=== PATIENT | female | born 1995 | race Caucasian/White ===

== ENCOUNTER 2016-04-05 15:30 | Inpatient (IN) | payer OTHER ==
[2016-04-05] MEDS ORDERED: LIDOCAINE HCL 50 ML VIAL PERI PRN (15:32)
[2016-04-05] MEDS: DEXTROSE 5%-LACTATED RINGERS 1,000 ML IV PRN ×2 (15:32→20:38)
[2016-04-05] MEDS ORDERED: ONDANSETRON HCL/PF 2 MG/ML VIAL IV PRN (15:32)
[2016-04-05] MEDS ORDERED: OXYTOCIN/DEXTROSE 5%-WATER 30 UNITS/500 ML BAG IV ONE (16:34)
[2016-04-05] MEDS: RINGERS SOLUTION,LACTATED 1,000 ML IV ONE (16:38)
[2016-04-05] MEDS ORDERED: BUPIVACAINE HCL/PF 30 ML VIAL EP ONE (16:56)
[2016-04-05] MEDS ORDERED: NALOXONE HCL 1 MG/1 ML SYRG IV PRN (16:56)
--- NOTE | 2016-04-05 17:51 | OR ---
Anesthesia Procedure Note - Anesthesia Procedure Note Date of Service: 04/05/16 Narrative: Vital Signs - Last Taken Temp 36.7 C 04/05/16 17:27 Pulse 85 04/05/16 17:27 Resp 18 04/05/16 17:27 BP 142/91 04/05/16 17:27 Pulse Ox 98 04/05/16 17:27 04/05/16 17:51 ANESTHESIA PROCEDURE NOTE Date of Procedure: 04/05/2015. Time of procedure: 1730. Performed by: Shahid Ann CRNA Paper Inspector: None. Preprocedure diagnosis: Active labor. Post procedure diagnosis: Same. Procedure: Insertion of labor epidural. Indications: The patient is a 20 -year-old female in active labor requesting labor epidural for pain management. Findings: See below. Details of the procedure: The patient was placed in a sitting position. DuraPrep as well as Betadine swabs 3 was applied to the patient's back. Patient was then draped in a sterile fashion. Lidocaine 1% was infiltrated to the skin and subcutaneous tissues at the level of the L3 4 interspace. The epidural space was identified using a 18-gauge Tuohy needle with loss-of- resistance technique. Epidural catheter was inserted to a depth of 11 centimeters at skin. Negative test dose was elicited using 3 mL of 1.5% preservative-free lidocaine plus epinephrine 1 200,000. The epidural catheter was then taped and secured in place. A loading dose of 8 mL of 0.25% preservative-free bupivacaine was administered to the epidural catheter after negative aspiration for blood and CSF. EBL: Minimal. Fluids: N/A. Specimen: N/A. Post procedure condition: The patient tolerated the procedure well. No complications were noted. Thank you for this consultation. Shahid Ann CRNA
[2016-04-05] MEDS: BUPIVACAINE HCL/0.9 % NACL/PF 250 ML EP PRN (18:03)
--- NOTE | 2016-04-05 19:41 | PN ---
Progess Note - Interim Narrative: 04/05/16 19:35 Patient comfortable with epidural Vital signs stable. Pitocin at 3 mu/min. FHT:150 baseline, reassuring Contractions q 2-3 min Cervix: 5/75/-2, AROM-clear Impression: Intrauterine at 40 1/7 weeks in labor Plan: Continue present plan
[2016-04-06] MEDS ORDERED: OXYTOCIN/DEXTROSE 5%-WATER 30 UNITS/500 ML BAG IV ONE ×2 (00:01→08:19)
[2016-04-06] MEDS: DEXTROSE 5%-LACTATED RINGERS 1,000 ML IV PRN ×2 (00:34→04:29)
[2016-04-06] MEDS: RINGERS SOLUTION,LACTATED 1,000 ML IV ONE (00:35)
[2016-04-06] MEDS: BUPIVACAINE HCL/0.9 % NACL/PF 250 ML EP PRN (04:31)
--- NOTE | 2016-04-06 05:28 | PN ---
Progess Note - Interim Narrative: 04/06/16 05:26 Patient comfortable with epidural Vital signs stable. Pitocin at 12 mu/min. FHT:150 baseline, reassuring Contractions q 1-2 minutes Complete/0 station Impression: Intrauterine at 40 1/7 weeks in labor Plan: Anticipate normal spontaneous vaginal delivery within the next 1-2 hours
[2016-04-06] MEDS ORDERED: BISACODYL 10 MG SUPP.RECT RC PRN (08:19)
[2016-04-06] MEDS ORDERED: HYDROCORTISONE 30 APPL TUBE TP PRN (08:19)
[2016-04-06] MEDS ORDERED: oxyCODONE HCL/ACETAMINOPHEN 1 TAB TABLET PO PRN (08:19)
[2016-04-06] MEDS ORDERED: SENNOSIDES 8.6 MG TABLET PO PRN (08:19)
[2016-04-06] MEDS ORDERED: BENZOCAINE/MENTHOL 81 SPRAY CAN TP PRN (08:19)
[2016-04-06] MEDS ORDERED: GLYCERIN/WITCH HAZEL LEAF 40 APPL BOX TP PRN (08:19)
--- NOTE | 2016-04-06 08:22 | OR ---
Operative Report - Dictated Report Narrative: Spontaneous vaginal delivery of viable male at 0732 on 04/06/2016 with Apgars 8 and 9 weighing 4530 g in ARIADNE position. Terminal meconium. Cord clamping delayed 1 minute. Placenta delivered complete, intact, with three vessel cord Estimated blood loss: less than 50 ml Lacerations: Second degree vaginal laceration (5 cm). With 0 Vicryl and 3-0 Vicryl Rapide History for MU Definition: * The number of deliveries resulting in a live the patient experienced prior to current hospitalization * The previous delivery of live twins or any live multiple gestation is considered one live event. *If primagravida or nulliparous is documented select zero for the number of previous live births. Live Events: 0
[2016-04-06] MEDS: oxyCODONE HCL/ACETAMINOPHEN 1 TAB TABLET PO PRN ×2 (11:43→18:02)
[2016-04-06] MEDS: IBUPROFEN 800 MG TABLET PO PRN ×2 (11:44→18:02)
[2016-04-06] MEDS: DOCUSATE SODIUM 100 MG CAPSULE PO SCH ×2 (12:29→20:26)
[2016-04-06] MEDS: FERROUS SULFATE 325 MG TABLET PO SCH (12:30)
[2016-04-06] MEDS: PRENATAL VIT#96/FERROUS FUM/FA 1 TAB TABLET PO SCH (12:30)
[2016-04-07] MEDS: IBUPROFEN 800 MG TABLET PO PRN ×4 (01:28→23:53)
[2016-04-07] MEDS: oxyCODONE HCL/ACETAMINOPHEN 1 TAB TABLET PO PRN ×4 (07:39→22:07)
[2016-04-07] MEDS: DOCUSATE SODIUM 100 MG CAPSULE PO SCH ×3 (07:40→22:07)
[2016-04-07] MEDS: PRENATAL VIT#96/FERROUS FUM/FA 1 TAB TABLET PO SCH ×2 (07:40→11:06)
[2016-04-07] MEDS: FERROUS SULFATE 325 MG TABLET PO SCH ×2 (07:40→11:06)
--- NOTE | 2016-04-07 12:27 | PN ---
Subjective - Date and Time Seen Date: 04/07/16 Time: 12:27 Objective - Vitals Vitals: Last Vital Signs Temp 36.2 C L 04/07/16 12:08 Pulse 73 04/07/16 12:08 Resp 18 04/07/16 12:08 BP 123/63 04/07/16 12:08 Pulse Ox 98 04/07/16 12:08 Patient denies complaints. Lochia wnl Abdomen - soft, nontender Uterus - firm, at umbilicus - 1 No calf tenderness Impression: day #1 - s/p spontaneous vaginal delivery. Plan: Continue routine care Cauti Physician Documentation - Urinary Catheter Management Urethral (Marsh) Date of Insertion: 04/05/16 Time of Insertion: 18:40 Date of Removal: 04/05/16 Time of Removal: 18:40
[2016-04-08] MEDS: oxyCODONE HCL/ACETAMINOPHEN 1 TAB TABLET PO PRN ×3 (04:57→12:19)
[2016-04-08 07:41] VITALS: BP 119/75
[2016-04-08] MEDS: FERROUS SULFATE 325 MG TABLET PO SCH (08:38)
[2016-04-08] MEDS: PRENATAL VIT#96/FERROUS FUM/FA 1 TAB TABLET PO SCH (08:38)
[2016-04-08] MEDS: DOCUSATE SODIUM 100 MG CAPSULE PO SCH (08:38)
[2016-04-08] MEDS: IBUPROFEN 800 MG TABLET PO PRN (08:40)
--- NOTE | 2016-04-08 11:00 | PN ---
Subjective - Date and Time Seen Date: 04/08/16 Time: 10:59 Objective - Vitals Vitals: Last Vital Signs Temp 36.3 C L 04/08/16 07:39 Pulse 78 04/08/16 07:39 Resp 16 04/08/16 07:39 BP 119/75 04/08/16 07:39 Pulse Ox 98 04/08/16 07:39 Patient denies complaints. Lochia wnl Abdomen - soft, nontender Uterus - firm, at umbilicus - 2 No calf tenderness Impression: day #2 - s/p spontaneous vaginal delivery. Plan: Routine discharge instructions Cauti Physician Documentation - Urinary Catheter Management Urethral (Marsh) Date of Insertion: 04/05/16 Time of Insertion: 18:40 Date of Removal: 04/05/16 Time of Removal: 18:40
== END 2016-04-08 14:45 | disposition home or self-care (01) | DRG 775 ==
LOC: OB 15:30
PROVIDERS: ADMIT Obstetrics & Gynecology; ATTEND Obstetrics & Gynecology
PROC: 10E0XZZ Delivery of Products of Conception, External Approach (ICD-10-PCS; principal; 2016-04-06)
PROC: 0KQM0ZZ Repair Perineum Muscle, Open Approach (ICD-10-PCS; 2016-04-06)
PROC: 4A1H7CZ Monitoring of Products of Conception, Cardiac Rate, Via Natural or Artificial Opening (ICD-10-PCS; 2016-04-06)
PROC: 10907ZC Drainage of Amniotic Fluid, Therapeutic from Products of Conception, Via Natural or Artificial Opening (ICD-10-PCS; 2016-04-06)
PROC: 3E0S3CZ (ICD-10-PCS; 2016-04-06)
DX: O70.1 Second degree perineal laceration during delivery (principal); O99.214 Obesity complicating childbirth; E66.01 Morbid (severe) obesity due to excess calories; Z68.38 Body mass index [BMI] 38.0-38.9, adult; O77.0 Labor and delivery complicated by meconium in amniotic fluid; Z3A.40 40 weeks gestation of pregnancy; Z37.0 Single live birth

== ENCOUNTER 2016-07-03 18:30 | Emergency (ER) | payer OTHER ==
[2016-07-03] MEDS ORDERED: KETOROLAC TROMETHAMINE 30 MG/ML VIAL IV ONE (18:45)
[2016-07-03] MEDS ORDERED: ONDANSETRON HCL/PF 2 MG/ML VIAL IV ONE (18:45)
[2016-07-03] MEDS ORDERED: NORMAL SALINE 1,000 ML IV ONE (18:45)
[2016-07-03] MEDS ORDERED: KETOROLAC TROMETHAMINE 30 MG/ML VIAL ONE (18:53)
[2016-07-03] MEDS ORDERED: ONDANSETRON HCL/PF 2 MG/ML VIAL ONE (18:53)
--- NOTE | 2016-07-03 19:01 | ERNOTE ---
Abdominal HPI - General Chief Complaint: Syncopal Episode Time Seen by Provider: 07/03/16 18:30 Source: patient, family Exam Limitations: no limitations - Immun/Allergies/Home Medications Immunizatons: IMMUNIZATION HX Immunizations Up to Date Yes History of Influenza Vaccine No Hx Pneumococcal Vaccination No Allergies/Adverse Reactions: Allergies No Known Allergies Allergy (Verified 04/05/16 15:32) Home Medications: HOME MEDICATIONS Acetaminophen [Tylenol] 1,000 mg PO Q6H PRN 07/03/16 [Last Taken Unknown] Ibuprofen [Motrin] 600 mg PO Q6H PRN #40 tab 07/03/16 [Last Taken Unknown] Minocycline HCl [Minocycline HCl ER] 90 mg PO DAILY 07/03/16 [Last Taken Unknown ] Norgestimate-Ethinyl Estradiol [Ortho-Cyclen 28 Tablet] 1 each PO DAILY [Last Taken Unknown] oxyCODONE HCL/ACETAMINOPHEN [Percocet 5 MG/325 MG] 1 tab PO Q4H PRN #20 tab 10/12 [Last Taken Unknown] - History of Present Illness Narrative: Patient had a vaginal delivery in March and states that she has been bleeding ever since using about 5 pads a day. She has a mirena inserted that was taken out again and she is currently on OCP and using condoms. For about three weeks she has had cramping as well as bleeding, has been taking tylenol only. Yesterday morning she woke up not feeling well, has been light headed and dizzy. About 30 minutes prior to coming she called her mom very upset and seem to be passing out intermittently, rates her lower abdominal pain as 10/10. - Patient's Past Medical History Patient History - Medical: No pertinent hx, Other Patient History - Cardiac/Respiratory: No pertinent hx Patient History - Cancer: No Hx of Cancer Patient History - Surgical Procedures: T & A Patient History - Other: None LMP (females 10-50): unknown LMP (Calendar): 07/25/14 - Social History Living Situations: spouse Abuse History: No History of abuse Psych History: No pertinent hx Does anyone smoke in the home?: No Smoking Status: Never smoker Have you smoked in the past 12 months: No Do you dip or chew tobacco: No Patient requests Smoking Cessation Consult: No Initiate information on Smoking Cessation: No Alcohol Use: rarely Drug Use: none - Immunizations Immunizations Up to Date: Yes Hx Pneumococcal Vaccination: No History of Influenza Vaccine: No Physical Exam - Physical Exam General Appearance: Present: wd/wn, alert, moderate distress, anxious Respiratory: Present: no respiratory distress, normal breath sounds, chest nontender, lungs clear Cardiovascular/Chest: Present: regular rate, rhythm, no murmur Gastrointestinal/Abdominal: Present: normal bowel sounds, nondistended, soft, tenderness - right lower abdomen/right pelvic. Absent: guarding, rebound, McBurney sign, Obturator sign, Psoas sign Back Exam: Present: no CVA tenderness Extremity Exam: Present: no edema Neurological Exam: Present: alert, oriented, normal mood/affect Skin Exam: Present: normal color, warm/dry ED Progress - Results and Orders Patient's Lab Results:: I have reviewed the patient's lab results. - Vital Signs Patient's Vital Signs:: I have reviewed the patient's vital signs. Vital Signs: Vital Signs 07/03/16 07/03/16 07/03/16 18:33 18:50 18:51 Temperature 37.3 C Pulse Rate 86 81 85 Respiratory 19 16 Rate Blood Pressure 137/91 130/82 O2 Sat by Pulse 100 97 Oximetry - CT/Ultrasound CT/Ultrasound Narrative: U/S; right ovarian cyst - Progress/Reassessment Chief Complaint: Syncopal Episode Progress Note-Subjective: 07/03/16 19:46 pain much better after toradol (05/08) 07/03/16 20:26 patient comfortable, discussed results and follow up Departure - Departure Clinical Impression: Ovarian cyst Qualifiers: Laterality: right Qualified Code(s): N83.201 - Unspecified ovarian cyst, right side Disposition: Home self-care Condition: Good Instructions: Ovarian Cyst, [id number] Additional Instructions: take ibuprofen 600g every six hours as needed for pain and the narcotic pain medication in addition as needed call your doctor after the weekend for follow up Referrals: Jamari Redd DO [Staff Physician] - Prescriptions: Ibuprofen [Motrin] 600 mg PO Q6H PRN #40 tab PRN Reason: Pain oxyCODONE HCL/ACETAMINOPHEN [Percocet 5 MG/325 MG] 1 tab PO Q4H PRN #20 tab PRN Reason: Pain
[2016-07-03 19:03] LABS: Hematocrit 34.1 % (37.0-47.0); Hemoglobin 11.4 gm/dL (12.5-16.0); Mean Cell Volume 88.1 fl (78-100); Mean Corpuscular Hemoglobin 29.5 pg (27-31); Mean Corpuscular Hgb Conc 33.4 g/dl (32-36); Mean Platelet Volume 10.1 fl (6.0-9.5); Neutrophil # 7.1 K/mm3 (1.3-6.0); Platelet Count 301 K/mm3 (150-450); Red Blood Count 3.87 M/mm3 (4.2-5.4); Red Cell Distribution Width 13.4 % (11.5-14.0); White Blood Count 10.8 K/mm3 (4.0-10.5)
--- OUTSIDE RECORDS SUMMARY | 2016-07-03 19:03 | XMS REPORT | Continuity of Care Document ---
:1995 Author Organization [facility] ([facility]) Address [address] [place] [address] Phone [phone] Care Team Providers Name Role Phone Provider, No-Primary Care Primary Care Provider Unavailable Source Comments This disclosure is being made pursuant to the Care Everywhere program, applicable federal and state laws, and may not contain all informaitonavailable regarding this patient.[facility] ([facility]) Active Allergies and Adverse Reactions Not on File Current Medications Not on file Active Problems Not on file Most Recent Encounters Date Type Specialty Providers Description 06/25/2016 Orders/Notes OBG Reproductive Adry Gray, Dx: Encounter for [facility] gynecological examination (Primary Dx) Social History Tobacco Use Types Packs/Day Years Used Date Never Assessed Plan of Care Date Type Specialty Providers Description 07/20/2016 Appointment OBG Reproductive Mejia Iglesias MD [address] [place] [address] [phone] (Fax) Chief Comp: Patient Adry Gray PA-C [address] [place] [address] [phone] (Fax) Reported Reason For Visit 07/20/2016 Appointment Obstetrics Chief Comp: Patient Reported Reason For Visit Health Maintenance Due Date Last Done Comments Hepatitis B Vaccine (1 of 3 - Primary Series) 1996 HPV Vaccine (1 of 3 - Female/Unknown 3 Dose Series) 07/30/2007 Tdap Vaccine 07/30/2007 Meningococcal Vaccine (1 of 1) 2012 Lipid Disorder Screening 2014 MMR Vaccine 2014 Td Vaccine 2014 Varicella Vaccine (1 of 2 - Adult - No Evidence of 2014 Immunity) Influenza Vaccine: Seasonal (#1) 10/28/2015 Results from Last 3 Months Not on file
[2016-07-03 19:23] LABS: Albumin * 3.1 gm/dl (3.4-5.0); Anion Gap 13.1 mmol/L (6.8-13.8); Bilirubin, Total 0.2 mg/dL (0.0-1.1); Ca. Corrected For Albumin 8.5 mg/dL (8.4-10.2); Calcium * 8.1 mg/dL (7.9-10.9); Carbon Dioxide 24.4 mmol/L (24-32.6); Potassium 3.5 mmol/L (3.4-4.6); Total Protein 6.6 gm/dL (6.2-8.2)
[2016-07-03 19:51] LABS: Urine Bilirubin Negative (NEGATIVE); Urine Blood 250 /ul (NEGATIVE); Urine Ketone Negative (NEGATIVE); Urine Nitrite Negative (NEGATIVE); Urine Protein Negative (NEGATIVE); Urine Urobilinogen Normal (NORMAL)
[2016-07-03 20:02] LABS: Urine Appearance Clear; Urine Color Yellow
[2016-07-03 20:03] LABS: Urine Bacteria TRACE; Urine WBC None Seen /hpf (0-5); Urine Waxy Cast TRACE /LPF
[2016-07-03 20:36] VITALS: BP 141/75
== END 2016-07-03 20:34 | disposition home or self-care (01) ==
LOC: ER 18:30
DX: N83.201 Unspecified ovarian cyst, right side (principal)

== ENCOUNTER 2017-01-17 16:46 | Emergency (ER) | payer OTHER ==
[2017-01-17 17:14] LABS: Urine Appearance Clear; Urine Bacteria None Seen; Urine Bilirubin Negative (NEGATIVE); Urine Blood Negative /ul (NEGATIVE); Urine Color Yellow; Urine Ketone Negative (NEGATIVE); Urine Nitrite Negative (NEGATIVE); Urine Protein Negative (NEGATIVE); Urine RBC None Seen /hpf (0-5); Urine Urobilinogen Normal (NORMAL); Urine WBC None Seen /hpf (0-5)
--- NOTE | 2017-01-17 17:15 | ERNOTE ---
ER Female HPI Date of Service: 01/17/17 Stated Complaint: 5 WEEKS . CRAMPING Presenting Symptoms: pelvic pain Time Seen by Provider: 01/17/17 17:02 Source: patient, RN notes reviewed Exam Limitations: no limitations Immunizations: IMMUNIZATION HX Immunizations Up to Date Yes History of Influenza Vaccine No Hx Pneumococcal Vaccination No Allergies/Adverse Reactions: Allergies No Known Allergies Allergy (Verified 01/17/17 16:58) Home Medications: HOME MEDICATIONS NK [No Home Medication] 01/17/17 [Last Taken Unknown] - History of Present Illness Narrative: 21 year old female presents to the ED for abdominal cramping. She reports being approximately 5 weeks . She had a positive test at home 3 days ago and is scheduled for her first OB appointment next week. She is also having diarrhea. This started yesterday. She has had 4 or 5 stools today. 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 She denies any vaginal bleeding or spotting currently, but does report having mild spotting about a week ago. Date (Duration): 01/16/17 Timing: Present: intermittent Onset Location: Present: RLQ, LLQ, suprapubic Radiation: Present: none Activities at Onset: Present: none Prior Abdominal Problems: Present: none Prior Treatment: Absent: recently seen, currently on antibiotics Review of Systems - Review of Systems Constitutional: Absent: recent illness, fever, chills EYE: Present: no symptoms reported ENT: Present: no symptoms reported Respiratory: Absent: shortness of breath, cough Cardiology: Absent: chest pain, palpitations, syncope Gastrointestinal/Abdominal: Present: nausea, diarrhea, abdominal pain. Absent: vomiting, constipation Genitourinary: Absent: frequency, dysuria, hematuria Musculoskeletal: Absent: back pain, muscle pain Skin: Absent: rash, lesions Neurological: Absent: headache, dizziness/light-headedness Endocrine: Present: no symptoms reported Hematologic/Lymphatic: Present: no symptoms reported Psych: Present: no symptoms reported - Patient's Past Medical History Patient History - Medical: No pertinent hx Patient History - Cardiac/Respiratory: No pertinent hx Patient History - Cancer: No Hx of Cancer Patient History - Surgical Procedures: T & A Patient History - Other: None LMP (females 10-50): LMP (Calendar): 12/10/16 - Social History Living Situations: home Abuse History: No History of abuse Psych History: No pertinent hx Smoking Status: Never smoker Alcohol Use: none Drug Use: none - Immunizations Immunizations Up to Date: Yes Hx Pneumococcal Vaccination: No History of Influenza Vaccine: No Physical Exam - Physical Exam General Appearance: Present: wd/wn, alert, no apparent distress Neck: Present: normal inspection, nontender, supple Respiratory: Present: no respiratory distress, normal breath sounds, no accessory muscle use, lungs clear Cardiovascular/Chest: Present: regular rate, rhythm, no murmur Gastrointestinal/Abdominal: Present: normal bowel sounds, nondistended, soft, tenderness - mild, lower abdominal Back Exam: Present: normal inspection, no CVA tenderness Extremity Exam: Present: normal inspection, normal range of motion, no edema Neurological Exam: Present: alert, oriented, normal mood/affect, no motor/ sensory deficits Skin Exam: Present: normal color, warm/dry ED Progress - Vital Signs Vital Signs: Vital Signs 01/17/17 16:54 Temperature 36.9 C Pulse Rate 101 H Respiratory 12 Rate Blood Pressure 125/77 O2 Sat by Pulse 99 Oximetry - Progress/Reassessment Chief Complaint: Genitourinary Problem Departure Clinical Impression: Abdominal pain in female, Elevated serum human chorionic gonadotropin (hCG) level - Departure Disposition: Home Follow Up Needed Condition: Stable Instructions: Human Chorionic Gonadotropin Test Additional Instructions: Contact Dr. Redd tomorrow regarding test results (your Hcg was 48 with a negative urine test) Return to ER for worsening symptoms - severe pain, heavy bleeding, fever, or other concerns Referrals: Jamari Redd DO [Primary Care Provider] -
[2017-01-17 17:29] LABS: Hematocrit 40.9 % (37.0-47.0); Hemoglobin 13.6 gm/dL (12.5-16.0); Mean Cell Volume 87.4 fl (78-100); Mean Corpuscular Hemoglobin 29.1 pg (27-31); Mean Corpuscular Hgb Conc 33.3 g/dl (32-36); Mean Platelet Volume 9.5 fl (6.0-9.5); Neutrophil # 7.3 K/mm3 (1.3-6.0); Neutrophil % 72.3 % (42-75.0); Platelet Count 339 K/mm3 (150-450); Red Blood Count 4.68 M/mm3 (4.2-5.4); Red Cell Distribution Width 13.3 % (11.5-14.0)
[2017-01-17 17:42] LABS: Anion Gap 13.9 mmol/L (6.8-13.8); BUN/Creatinine Ratio 16.4 (9.0-21.6); Bilirubin, Total 0.4 mg/dL (0.0-1.1); Ca. Corrected For Albumin 8.9 mg/dL (8.4-10.2); Calcium * 9.2 mg/dL (7.9-10.9); Carbon Dioxide 25.2 mmol/L (24-32.6); Potassium 4.1 mmol/L (3.4-4.6); Total Protein 8.4 gm/dL (6.2-8.2)
[2017-01-17 18:25] VITALS: BP 154/92
== END 2017-01-17 18:25 | disposition home or self-care (01) ==
LOC: ER 16:46
DX: E34.9 Endocrine disorder, unspecified (principal); R10.30 Lower abdominal pain, unspecified

== ENCOUNTER 2017-01-18 19:50 | Emergency (ER) | payer OTHER ==
[2017-01-18] MEDS ORDERED: KETOROLAC TROMETHAMINE 60 MG/2 ML VIAL IM ONE ×2 (20:08→20:11)
--- NOTE | 2017-01-18 20:20 | ERNOTE ---
<Vicky Claros - Last Filed: 01/18/17 22:20> Abdominal HPI - Narrative Date of Service: 01/18/17 - General Chief Complaint: Abdominal Pain Time Seen by Provider: 01/18/17 20:03 Source: patient, RN notes reviewed Exam Limitations: no limitations - Immun/Allergies/Home Medications Immunizatons: IMMUNIZATION HX Immunizations Up to Date Yes History of Influenza Vaccine No Hx Pneumococcal Vaccination No Allergies/Adverse Reactions: Allergies No Known Allergies Allergy (Verified 01/18/17 20:00) Home Medications: HOME MEDICATIONS NK [No Home Medication] 01/17/17 [Last Taken Unknown] - History of Present Illness Narrative: Charu is a 21 year female who presents for right lower quadrant abdominal pain that began 3 days ago but is worse today. I saw the patient yesterday. She reported being approximately 5 weeks a that time. Her quantitative Hcg was only 48. She was [facility]. She began having vaginal bleeding today that she describes as no heavier than a normal period. She reports that her pain has gotten much worse. She is nauseous but has not been vomiting. She continues to have diarrhea. This started yesterday. 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 She has taken Tylenol and ibuprofen without improvement. She is a . Her blood type is A positive. Timing: constant, getting worse Quality: severe, stabbing Activities at Onset: none Prior Abdominal Problems: Present: similar symptoms Prior Treatment: Present: recently seen Review of Systems - Review of Systems Constitutional: Present: recent illness, fatigue, malaise. Absent: fever, chills EYE: Present: no symptoms reported ENT: Present: no symptoms reported Respiratory: Absent: shortness of breath, cough Cardiology: Absent: chest pain, palpitations, syncope Gastrointestinal/Abdominal: Present: nausea, diarrhea, abdominal pain. Absent: vomiting Genitourinary: Absent: frequency, dysuria Musculoskeletal: Absent: back pain, muscle pain Skin: Absent: rash, lesions Neurological: Absent: headache, dizziness/light-headedness Endocrine: Present: no symptoms reported Hematologic/Lymphatic: Absent: easy bruising, easy bleeding Psych: Present: anxiety - Patient's Past Medical History Patient History - Medical: No pertinent hx Patient History - Cardiac/Respiratory: No pertinent hx Patient History - Cancer: No Hx of Cancer Patient History - Surgical Procedures: T & A Patient History - Other: None LMP (females 10-50): other - Social History Living Situations: significant other Abuse History: No History of abuse Psych History: No pertinent hx Smoking Status: Never smoker Have you smoked in the past 12 months: No Do you dip or chew tobacco: No Alcohol Use: none Drug Use: none - Immunizations Immunizations Up to Date: Yes Hx Pneumococcal Vaccination: No History of Influenza Vaccine: No Physical Exam - Physical Exam General Appearance: Present: wd/wn, alert, mild distress, anxious Neck: Present: normal inspection, nontender, supple Respiratory: Present: no respiratory distress, normal breath sounds, no accessory muscle use, lungs clear Cardiovascular/Chest: Present: regular rate, rhythm, no murmur, normal peripheral pulses Gastrointestinal/Abdominal: Present: normal bowel sounds, nondistended, soft, tenderness - right lower quadrant. Absent: guarding, rebound, mass Pelvic Exam: Present: deferred Back Exam: Present: normal inspection, no CVA tenderness Extremity Exam: Present: normal inspection, normal range of motion, no edema Neurological Exam: Present: alert, oriented, normal mood/affect Skin Exam: Present: normal color, warm/dry ED Progress - Results and Orders Patient's Lab Results:: I have reviewed the patient's lab results. - Vital Signs Patient's Vital Signs:: I have reviewed the patient's vital signs. Vital Signs: Vital Signs 01/18/17 19:56 Temperature 37.0 C Pulse Rate 85 Respiratory 16 Rate Blood Pressure 154/86 O2 Sat by Pulse 100 Oximetry - Progress/Reassessment Chief Complaint: Abdominal Pain Progress:: Unchanged - Transfer of Care Physician Sign Out: Vicky Claros Receiving Physician: Antolin Whipple Pending Results: X-ray results Expected Disposition: Discharge Plan - Plan Plan: Quantitative HCG dropped from 48 to 28 today. Patient is obviously miscarrying which could be the cause of her RLQ pain, but she is concerned that it is something more severe so an ultrasound was ordered. The patient is in ultrasound at present. Toradol IM was ordered for pain but she then refused to have an injection. Departure Clinical Impression: Spontaneous - Departure Disposition: Home self-care Condition: Stable Instructions: Miscarriage, [id number] Additional Instructions: As we discussed, the ultrasound does not show a definite in your uterus. We do have a bit of concern about a small area which may be a cyst on her ovary on the right. This is likely the cause of her pain. We suspect that you are having a miscarriage, but in this case it is important for us to follow the labs and the ultrasound. I want her to call your [facility] doctor tomorrow morning, tell them you were seen in the ER, that you are seen by an [facility] doctor, and that they want you to get in to your [facility] doctor in 2 days. You need to have a repeat hCG performed as well as a repeat ultrasound performed. In the meantime if her pain gets so bad that he can't control it or if you have significant bleeding to the point where you're passing out or getting dizzy or if you develop any new concerning symptoms he should return immediately to the emergency department. If for some reason you are unable to get in to see her OB /[facility] doctor in 2 days you should follow up in an emergency room Referrals: Jamari Redd DO [Staff Physician] - <Antolin Whipple - Last Filed: 01/18/17 22:53> Abdominal HPI - Immun/Allergies/Home Medications Immunizatons: IMMUNIZATION HX Immunizations Up to Date Yes History of Influenza Vaccine No Hx Pneumococcal Vaccination No ED Progress - Vital Signs Vital Signs: Vital Signs 01/18/17 01/18/17 19:56 21:12 Temperature 37.0 C 36.9 C Pulse Rate 85 88 Respiratory 16 16 Rate Blood Pressure 154/86 143/72 O2 Sat by Pulse 100 98 Oximetry Plan - Plan Plan: There was concern on the ultrasound of a possible ectopic. I have consulted with [facility]. They think that it is very unlikely with this low a level of hCG. They are suggesting that we get serial Quant with serial ultrasounds. The suspicion is more likely that the patient is having a miscarriage and also has a cyst
[2017-01-18 20:21] LABS: Hematocrit 39.1 % (37.0-47.0); Hemoglobin 12.6 gm/dL (12.5-16.0); Mean Cell Volume 88.7 fl (78-100); Mean Corpuscular Hemoglobin 28.6 pg (27-31); Mean Corpuscular Hgb Conc 32.2 g/dl (32-36); Mean Platelet Volume 9.9 fl (6.0-9.5); Neutrophil # 3.5 K/mm3 (1.3-6.0); Neutrophil % 48.4 % (42-75.0); Platelet Count 318 K/mm3 (150-450); Red Blood Count 4.41 M/mm3 (4.2-5.4); Red Cell Distribution Width 13.3 % (11.5-14.0); White Blood Count 7.2 K/mm3 (4.0-10.5)
[2017-01-18 20:35] LABS: Albumin * 3.6 gm/dl (3.4-5.0); Anion Gap 15.5 mmol/L (6.8-13.8); BUN/Creatinine Ratio 12.2 (9.0-21.6); Bilirubin, Total 0.1 mg/dL (0.0-1.1); Ca. Corrected For Albumin 8.8 mg/dL (8.4-10.2); Calcium * 8.8 mg/dL (7.9-10.9); Carbon Dioxide 25.3 mmol/L (24-32.6); Potassium 3.8 mmol/L (3.4-4.6); Total Protein 7.8 gm/dL (6.2-8.2)
[2017-01-18] MEDS ORDERED: NORMAL SALINE 1,000 ML IV ONE (22:25)
[2017-01-18] MEDS ORDERED: MORPHINE SULFATE 4 MG/ML SYRG IV ONE (22:25)
--- NOTE | 2017-01-18 23:08 | HP ---
<Antolin Whipple - Last Filed: 01/19/17 00:37> Immunizations: IMMUNIZATION HX Immunizations Up to Date Yes History of Influenza Vaccine No Hx Pneumococcal Vaccination No Allergies/Adverse Reactions: Allergies Allergy/AdvReac Type Severity Reaction Status Date / Time No Known Allergies Allergy Verified 01/18/17 20:00 Home Medications: HOME MEDICATIONS HYDROcodone/ACETAMINOPHEN [[place] 5-325] 1 each PO Q4H PRN #10 tablet 01/18/17 [ Last Taken Unknown] Exam - Exam Vital Signs: Vital Signs - Last Taken Temp 37.0 C 01/18/17 23:20 Pulse 84 01/18/17 23:20 Resp 14 01/18/17 23:20 BP 130/68 01/18/17 23:20 Pulse Ox 98 01/18/17 23:20 Diagnostic Studies: Abnormal Lab Results 01/18/17 01/18/17 01/18/17 Range/Units 20:15 20:15 20:15 MPV 9.9 H (6.0-9.5) fl Monocytes % 10.2 H (0.0-9) % Anion Gap 15.5 H (6.8-13.8) mmol/L Random Glucose 119 H D (70-110) mg/dL Maternal Serum HCG 24 H D (0-6) mIU/mL Laboratory Results WBC 7.2 K/mm3 (4.0-10.5) D 01/18/17 20:15 RBC 4.41 M/mm3 (4.2-5.4) 01/18/17 20:15 Hgb 12.6 gm/dL (12.5-16.0) 01/18/17 20:15 Hct 39.1 % (37.0-47.0) 01/18/17 20:15 MCV 88.7 fl (78-100) 01/18/17 20:15 MCH 28.6 pg (27-31) 01/18/17 20:15 MCHC 32.2 g/dl (32-36) 01/18/17 20:15 RDW 13.3 % (11.5-14.0) 01/18/17 20:15 Plt Count 318 K/mm3 (150-450) 01/18/17 20:15 MPV 9.9 fl (6.0-9.5) H 01/18/17 20:15 Immature Gran % (Auto) 0.30 % (0.001-0.429) 01/18/17 20:15 Immature Gran # (Auto) 0.02 K/mm3 (0.000-0.0310) 01/18/17 20:15 Neutrophils % 48.4 % (42-75.0) 01/18/17 20:15 Lymphocytes % 38.4 % (20-51) 01/18/17 20:15 Monocytes % 10.2 % (0.0-9) H 01/18/17 20:15 Eosinophils % 2.4 % (0.0-3.0) 01/18/17 20:15 Basophils % 0.3 % (0.0-1.0) 01/18/17 20:15 Nucleated RBC % 0.0 k/mm3 (0-1) 01/18/17 20:15 Neutrophils # 3.5 K/mm3 (1.3-6.0) 01/18/17 20:15 Lymphocytes # 2.8 k/mm3 (1.5-3.5) 01/18/17 20:15 Monocytes # 0.7 k/mm3 (0.0-1.0) 01/18/17 20:15 Eosinophils # 0.2 k/mm3 (0.0-0.7) 01/18/17 20:15 Absolute Basophils 0.0 k/mm3 (0.0-0.1) 01/18/17 20:15 Sodium 141 mmol/L (132-142) 01/18/17 20:15 Plasma Sodium 141 mmol/L (130-142) 01/18/17 20:15 Potassium 3.8 mmol/L (3.4-4.6) 01/18/17 20:15 Chloride 104 mmol/L (97-106) 01/18/17 20:15 Carbon Dioxide 25.3 mmol/L (24-32.6) 01/18/17 20:15 Anion Gap 15.5 mmol/L (6.8-13.8) H 01/18/17 20:15 BUN 10 mg/dL (3-23) 01/18/17 20:15 Creatinine 0.82 mg/dL (0.4-1.4) 01/18/17 20:15 Est GFR (Non-Af Amer) 94 mL/min (60-130) 01/18/17 20:15 BUN/Creatinine Ratio 12.2 (9.0-21.6) 01/18/17 20:15 Random Glucose 119 mg/dL (70-110) H D 01/18/17 20:15 Calcium 8.8 mg/dL (7.9-10.9) 01/18/17 20:15 Calcium Adj for Albumin 8.8 mg/dL (8.4-10.2) 01/18/17 20:15 Total Bilirubin 0.1 mg/dL (0.0-1.1) 01/18/17 20:15 AST 33 U/L (0-48) 01/18/17 20:15 ALT 58 U/L (19-67) 01/18/17 20:15 Alkaline Phosphatase 74 U/L (50-170) 01/18/17 20:15 Total Protein 7.8 gm/dL (6.2-8.2) 01/18/17 20:15 Albumin 3.6 gm/dl (3.4-5.0) 01/18/17 20:15 Maternal Serum HCG 24 mIU/mL (0-6) H D 01/18/17 20:15 Blood Type A Positive 01/18/17 20:15 Antibody Screen Negative 01/18/17 20:15 Assessment/Plan - Narrative Narrative: I have gotten the official report on the ultrasound. The radiologist believes that the patient has a right adnexal ectopic I have discussed with Dr. Gonzales. He disagrees and believes that the likelihood of ectopic is lower. I've spoken with both the patient's mother and the patient. If she has increased pain significantly increased bleeding or any new symptoms they will return to the ER immediately. 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 <Karolina Torres - Last Filed: 01/19/17 01:19> Chief Complaint - Chief Complaint Date of Service: 01/18/17 Chief Complaint: RUQ pain and positive hcg concerning for ectopic History of Present Illness: 21 yo, CF, about 5.2 weeks with LMP 12/12/16, presented to ER for RLQ pain. She has a hcg of 48 yesterday in ER and a hcg of 24 today. First home test was on (Jan 14), but was barely positive per patient. Pelvic u/s today showed a heterogenous area / a cyst with "ring of fire " in the right adnexa per ER doctor Dr. Whipple and therefore he called for a consultation to rule out ectopic . Formal report of u/s is not available at this time. Per the pateint, she has been having RLQ pain for 2 months, worse yesterday and today. The pain was intermittent and more constant today. Also noted some vaginal bleeding started today at 9:30. Denies passing clots or tissues. Has some nausea, but no vomiting. Of note, she has diarrhea for 2 days, about 7-10 times a day, worse yesterday and better today. Had a fever of 100.6 last night. Denies chills. Per patient, her blood type was A positive. POBGYN history: x 1 (Apr 06, 2016, 40.2 w ) Mirena IUD (Apr-May) OCPs after Mirena IUD to September. PMH: none PSH: tonsil and adenoid SH: denies use of tobacco, alcohol or drug. ALL: NKDA - Patient's Past Medical History Patient History - Medical: No pertinent hx Patient History - Cardiac/Respiratory: No pertinent hx Patient History - Cancer: No Hx of Cancer Patient History - Surgical Procedures: T & A Patient History - Other: None LMP (females 10-50): other - Social History Living Situations: significant other Abuse History: No History of abuse Psych History: No pertinent hx Smoking Status: Never smoker Have you smoked in the past 12 months: No Do you dip or chew tobacco: No Alcohol Use: none Drug Use: none - Immunizations Immunizations Up to Date: Yes Hx Pneumococcal Vaccination: No History of Influenza Vaccine: No Review Of Systems (GEN) - Review of Systems Generalized/Overall Review: Present: Fever Abdominal: Present: Nausea, Abdominal Pain, Diarrhea Genitourinary: Present: Other - vaginal bleeding Misc: All systems neg except as marked Immunizations: IMMUNIZATION HX Immunizations Up to Date Yes History of Influenza Vaccine No Hx Pneumococcal Vaccination No Exam - Exam Vital Signs: Vital Signs - Last Taken Temp 36.9 C 01/18/17 21:12 Pulse 88 01/18/17 21:12 Resp 16 01/18/17 21:12 BP 143/72 01/18/17 21:12 Pulse Ox 98 01/18/17 21:12 Constitutional: Present: Alert, Oriented x3, Cooperative, No distress ENT Exam: Present: hearing grossly normal Neck: Present: supple Back Exam: Present: no CVA tenderness Breasts: Present: Exam deferred Respiratory: Present: lungs clear, normal breath sounds, no respiratory distress , no accessory muscle use Cardiovascular/Chest: Present: normal peripheral pulses, regular rate, rhythm, no gallop, no murmur, no rub Abdomen: Present: Normal bowel sounds, soft, nondistended, no rebound tenderness , no hepatospenomegaly, no masses, other - mildly tender bilateral lower abdomen /Rectal: Present: Other - small blood in the vagina, no clots. cervix closed, no lesions, no cervical motion tenderness uterus normal size, nontender mildly tender bilateral adnexa, no masses Extremity: Present: normal range of motion, no pedal edema, no calf tenderness Skin Exam: Present: normal color, warm/dry, no cyanosis Lymphatic: Present: no adenopathy Neurologic: Present: can technician II-XII nml as tested Appearance: Present: appropriate appearance Eye contact: Present: cooperative, good eye contact, normal speech Diagnostic Studies: Abnormal Lab Results 01/18/17 01/18/17 01/18/17 Range/Units 20:15 20:15 20:15 MPV 9.9 H (6.0-9.5) fl Monocytes % 10.2 H (0.0-9) % Anion Gap 15.5 H (6.8-13.8) mmol/L Random Glucose 119 H D (70-110) mg/dL Maternal Serum HCG 24 H D (0-6) mIU/mL Laboratory Results WBC 7.2 K/mm3 (4.0-10.5) D 01/18/17 20:15 RBC 4.41 M/mm3 (4.2-5.4) 01/18/17 20:15 Hgb 12.6 gm/dL (12.5-16.0) 01/18/17 20:15 Hct 39.1 % (37.0-47.0) 01/18/17 20:15 MCV 88.7 fl (78-100) 01/18/17 20:15 MCH 28.6 pg (27-31) 01/18/17 20:15 MCHC 32.2 g/dl (32-36) 01/18/17 20:15 RDW 13.3 % (11.5-14.0) 01/18/17 20:15 Plt Count 318 K/mm3 (150-450) 01/18/17 20:15 MPV 9.9 fl (6.0-9.5) H 01/18/17 20:15 Immature Gran % (Auto) 0.30 % (0.001-0.429) 01/18/17 20:15 Immature Gran # (Auto) 0.02 K/mm3 (0.000-0.0310) 01/18/17 20:15 Neutrophils % 48.4 % (42-75.0) 01/18/17 20:15 Lymphocytes % 38.4 % (20-51) 01/18/17 20:15 Monocytes % 10.2 % (0.0-9) H 01/18/17 20:15 Eosinophils % 2.4 % (0.0-3.0) 01/18/17 20:15 Basophils % 0.3 % (0.0-1.0) 01/18/17 20:15 Nucleated RBC % 0.0 k/mm3 (0-1) 01/18/17 20:15 Neutrophils # 3.5 K/mm3 (1.3-6.0) 01/18/17 20:15 Lymphocytes # 2.8 k/mm3 (1.5-3.5) 01/18/17 20:15 Monocytes # 0.7 k/mm3 (0.0-1.0) 01/18/17 20:15 Eosinophils # 0.2 k/mm3 (0.0-0.7) 01/18/17 20:15 Absolute Basophils 0.0 k/mm3 (0.0-0.1) 01/18/17 20:15 Sodium 141 mmol/L (132-142) 01/18/17 20:15 Plasma Sodium 141 mmol/L (130-142) 01/18/17 20:15 Potassium 3.8 mmol/L (3.4-4.6) 01/18/17 20:15 Chloride 104 mmol/L (97-106) 01/18/17 20:15 Carbon Dioxide 25.3 mmol/L (24-32.6) 01/18/17 20:15 Anion Gap 15.5 mmol/L (6.8-13.8) H 01/18/17 20:15 BUN 10 mg/dL (3-23) 01/18/17 20:15 Creatinine 0.82 mg/dL (0.4-1.4) 01/18/17 20:15 Est GFR (Non-Af Amer) 94 mL/min (60-130) 01/18/17 20:15 BUN/Creatinine Ratio 12.2 (9.0-21.6) 01/18/17 20:15 Random Glucose 119 mg/dL (70-110) H D 01/18/17 20:15 Calcium 8.8 mg/dL (7.9-10.9) 01/18/17 20:15 Calcium Adj for Albumin 8.8 mg/dL (8.4-10.2) 01/18/17 20:15 Total Bilirubin 0.1 mg/dL (0.0-1.1) 01/18/17 20:15 AST 33 U/L (0-48) 01/18/17 20:15 ALT 58 U/L (19-67) 01/18/17 20:15 Alkaline Phosphatase 74 U/L (50-170) 01/18/17 20:15 Total Protein 7.8 gm/dL (6.2-8.2) 01/18/17 20:15 Albumin 3.6 gm/dl (3.4-5.0) 01/18/17 20:15 Maternal Serum HCG 24 mIU/mL (0-6) H D 01/18/17 20:15 Assessment/Plan - Procedures Results: A: 21 yo, CF, , with 1) at about 5.2 week by LMP 12/12/16 with hcg of 48 ( Jan 17) and hcg of 24 (Jan 18), 2)RLQ pain, 3) u/s finding of possible right adnexal cyst/lesion and no IUP, 4) vaginal bleeding, and 5)diarrhea. Plan: At this point, this is a of unknown location. Differential diagnosis includes 1) early intrauterine , 2) spontaneous 3) ectopic . There is a high suspicion of a spontaneous . Possibility of ectopic is low in the differential at this time. Recommend serial hcg and u/s in 2 days. Patient is stable and could be sent home. Return precautions given for any increased pain or bleeding. Thank you for the opportunity to participate in the care of this patient. Karolina Torres MD
[2017-01-18] MEDS ORDERED: HYDROcodone/ACETAMINOPHEN 1 EACH TABLET PO ONE (23:27)
[2017-01-18] MEDS ORDERED: HYDROcodone/ACETAMINOPHEN 1 EACH TABLET ONE (23:41)
[2017-01-19 01:15] VITALS: BP 139/79
== END 2017-01-18 23:44 | disposition home or self-care (01) ==
LOC: ER 19:50
DX: O03.9 Complete or unspecified spontaneous abortion without complication (principal)

== ENCOUNTER 2017-12-27 00:06 | Inpatient (IN) ==
[2017-12-27] MEDS ORDERED: DEXTROSE 5%-LACTATED RINGERS 1,000 ML IV PRN (00:10)
[2017-12-27] MEDS ORDERED: ONDANSETRON HCL/PF 2 MG/ML VIAL IV PRN ×2 (00:10→10:30)
[2017-12-27] MEDS ORDERED: RINGER'S SOLUTION,LACTATED 1,000 ML IV ONE (00:10)
[2017-12-27] MEDS ORDERED: OXYTOCIN/DEXTROSE 5%-WATER 30 UNITS/500 ML BAG IV ONE ×2 (00:10→15:03)
[2017-12-27] MEDS: MISOPROSTOL 100 MCG TABLET VG PRN ×2 (00:47→04:46)
[2017-12-27] MEDS ORDERED: NALOXONE HCL 1 MG/1 ML SYRG IV PRN (10:30)
[2017-12-27] MEDS ORDERED: BUPIVACAINE HCL/0.9 % NACL/PF 250 ML EP PRN (10:30)
[2017-12-27] MEDS ORDERED: fentaNYL CITRATE/PF 50 MCG/ML AMPUL IT SCH (10:30)
[2017-12-27] MEDS ORDERED: LIDOCAINE HCL 50 ML VIAL PERI PRN (10:51)
--- NOTE | 2017-12-27 11:07 | ANES ---
Anesthesia Pre Procedure Eval Vitals/Labs: Last Vital Signs Temp 36.9 C 12/27/17 00:20 Pulse 92 12/27/17 00:20 Resp 16 12/27/17 00:20 BP 135/78 12/27/17 00:20 Pulse Ox 98 12/27/17 00:20 HOME MEDICATIONS Pnv95/Iron Fum/Folic Acid [Prenavite Tablet] 1 ea PO DAILY 07/26/17 [Last Taken 12/26/17] Allergies/Adverse Reactions: Allergies Allergy/AdvReac Type Severity Reaction Status Date / Time No Known Allergies Allergy Verified 12/21/17 11:09 - Planned Procedure Planned Procedure: ELECTIVE INDUCTION Medication List Reviewed:: Yes Allergies Verified: Yes Medical History (Last Reviewed 12/27/17 @ 11:05 by Chavez Otero CRNA) Obesity Seasonal allergies Anemia Ectopic History of ectopic (Resolved) Mononucleosis Ovarian cyst UTI (urinary tract infection) HSV (herpes simplex virus) infection Knee pain Parker splints Surgical History (Last Reviewed 12/27/17 @ 11:05 by Chavez Otero CRNA) History of adenoidectomy History of tonsillectomy [place] teeth extracted Family History (Last Reviewed 12/27/17 @ 11:05 by Chavez Otero CRNA) Father Heart failure Grandfather CHF (congestive heart failure) Grandfather Diabetes Grandmother Lyme disease CVA (cerebral vascular accident) Grandmother Alzheimers disease Mother Hypertension Asthma Diabetes - Family Anesthesia History Family History:: no untoward family reactions to anesthesia - Airway/Neck/Teeth Within Normal Limits:: Yes Mallampatti Score: 2 Thyromental (T-M) distance: > 6 cm Mandibulo Hyoid distance: > 3 cm - Respiratory Respiratory: lungs clear, normal breath sounds Discussed smoking cessation including day of surgery: No Sleep Apnea currently treated: No Sleep Apnea by current assessment: No Discussed Risks/Treatment of JERRY: No - Cardiovascular Patient History - Cardiac/Respiratory: No pertinent hx Tolerates Activity: Good Heart Sounds: S1 & S2, Regular - Anesthesia Assessment and Plan ASA Class: PS, II, E Anesthesia Type Plan: Epidural Planned difficult intubation/equipment available: No
--- NOTE | 2017-12-27 11:42 | ANES ---
Post Anesthesia Discharge - Transfer of Care Transfer of Care handoff given to nurse: Yes - Anesthesia Post Op Note Anesthesia Post Op Note: care transferred to OB RN
--- NOTE | 2017-12-27 11:43 | ANES ---
Post Anesthesia Assessment - Vital Signs Vitals: Last Vital Signs Temp 36.9 C 12/27/17 00:20 Pulse 92 12/27/17 00:20 Resp 16 12/27/17 00:20 BP 135/78 12/27/17 00:20 Pulse Ox 98 12/27/17 00:20 Airway Patency: Normal - Mental Status Level Of Consciousness: Awake - Pain Level Pain Score: 2 - N/V Assessment Nausea/Vomiting Presence: None Dehydration:: No
--- NOTE | 2017-12-27 11:44 | ANES ---
Anesthesia Procedure Note Procedure Note: ANESTHESIA PROCEDURE NOTE Date of Procedure: 12/27/2017 Time of procedure:[]. 1120 Performed by: Leobardo Otero CRNA [employer] Duster: None. Preprocedure diagnosis: Active labor. Post procedure diagnosis: Same. Procedure: Insertion of labor epidural. Indications: The patient is a [22] -year-old [multigravida] female in active labor requesting labor epidural for pain management. Findings: See below. Details of the procedure: The patient was placed in a sitting position. Back was prepped with DuraPrep. Patient was then draped in a sterile fashion. Lidocaine 1% was infiltrated to the skin and subcutaneous tissues at the level of the L3 4 interspace. The epidural space was identified using a 18-gauge Tuohy needle with [id number] technique. 20 mcg fentanyl was given intrathecally using a 27 ga. spinal needle. Epidural catheter was inserted without difficulty. Negative test dose was elicited using 5 mL of 1.5% preservative-free lidocaine plus epinephrine 1 200,000. The epidural catheter was then taped and secured in place. EBL: Minimal. Fluids: N/A. Specimen: N/A. Post procedure condition: The patient tolerated the procedure well. No complications were noted. Thank you for this consultation. Isaac CRNA
--- NOTE | 2017-12-27 13:05 | HP ---
Chief Complaint - Chief Complaint Date of Service: 12/27/17 Time of Service: 13:04 Chief Complaint: elective induction of labor History of Present Illness: 22 yo at 39 2/7 wks presents to L&D for elective induction of labor. This complicated by anemia and obesity. Rh positive Rubella immune GBS negative Medical History (Last Reviewed 12/27/17 @ 19:45 by Jamari Redd DO) Obesity Seasonal allergies Anemia Ectopic History of ectopic (Resolved) Mononucleosis Ovarian cyst UTI (urinary tract infection) HSV (herpes simplex virus) infection Knee pain Parker splints Surgical History: Surgical History (Last Reviewed 12/27/17 @ 19:45 by Jamari Redd DO) History of adenoidectomy History of tonsillectomy [place] teeth extracted Family History: Family History (Last Reviewed 12/27/17 @ 19:45 by Jamari Redd DO) Father Heart failure Grandfather CHF (congestive heart failure) Grandfather Diabetes Grandmother Lyme disease CVA (cerebral vascular accident) Grandmother Alzheimers disease Mother Hypertension Asthma Diabetes Social History: Preferred Language Slovenian Do you have any sabianism or No cultural preference? Abuse History No History of abuse Psych History No pertinent hx Review Of Systems (GEN) - Review of Systems EENTM: Present: No Symptoms Reported Respiratory: Present: No Symptoms Reported Cardiac: Present: No Symptoms Reported Abdominal: Present: No Symptoms Reported Genitourinary: Present: No Symptoms Reported Musculoskeletal: Present: No Symptoms Reported Neurological: Present: No Symptoms Reported Skin: Present: No Symptoms Reported Endocrine: Present: No Symptoms Reported Immunizations: IMMUNIZATION HX Immunizations Up to Date Yes History of Influenza Vaccine No Hx Pneumococcal Vaccination No Allergies/Adverse Reactions: Allergies Allergy/AdvReac Type Severity Reaction Status Date / Time No Known Allergies Allergy Verified 12/21/17 11:09 Home Medications: HOME MEDICATIONS Pnv95/Iron Fum/Folic Acid [Prenavite Tablet] 1 ea PO DAILY 07/26/17 [Last Taken 12/26/17] Exam - Exam Vital Signs: Vital Signs - Last Taken Temp 36.9 C 12/27/17 00:20 Pulse 92 12/27/17 00:20 Resp 16 12/27/17 00:20 BP 135/78 12/27/17 00:20 Pulse Ox 98 12/27/17 00:20 Constitutional: Present: Alert, Oriented x3, Cooperative, No distress ENT Exam: Present: hearing grossly normal Respiratory: Present: lungs clear, no respiratory distress Cardiovascular/Chest: Present: regular rate, rhythm Abdomen: Present: soft, nontender, no rebound tenderness, other - gravid /Rectal: Present: Other - cervix 1-2/60/-3 Extremity: Present: non-tender, no pedal edema, no calf tenderness Skin Exam: Present: normal color, warm/dry, no cyanosis Neurologic: Present: alert, normal mood/affect, oriented x 3 Appearance: Present: appropriate appearance, appropriate insight Eye contact: Present: cooperative, good eye contact Thoughts: Present: normal thought pattern Assessment/Plan - Assessment/Plan (1) Elective induction of labor planned Assessment: Admit for Cytotec induction of labor. Epidural PRN. Problem: Acute
--- NOTE | 2017-12-27 13:06 | PN ---
Progess Note - Interim Date: 12/27/17 Time: 13:05 Narrative: 12/27/17 13:05 Patient comfortable with epidural Vital signs stable. Pitocin at 3 mu/min. FHT: 135 baseline, reassuring Contractions q 2-5 minutes with occasional couplets min Cervix: 8/90/-2, AROM at 12:15-clear Impression: Intrauterine at 39-2/7 weeks elective induction of labor progressing well. Suspect baby in OP presentation Plan: Position changes. Anticipate normal spontaneous vaginal delivery within the next couple hours.
[2017-12-27] MEDS ORDERED: BISACODYL 10 MG SUPP.RECT RC PRN (15:03)
[2017-12-27] MEDS ORDERED: GLYCERIN/WITCH HAZEL LEAF 40 APPL BOX TP PRN (15:03)
[2017-12-27] MEDS ORDERED: oxyCODONE HCL/ACETAMINOPHEN 1 TAB TABLET PO PRN (15:03)
[2017-12-27] MEDS ORDERED: HYDROCORTISONE 30 APPL TUBE TP PRN (15:03)
[2017-12-27] MEDS ORDERED: BENZOCAINE/MENTHOL 81 SPRAY CAN TP PRN (15:03)
[2017-12-27] MEDS ORDERED: SENNOSIDES 8.6 MG TABLET PO PRN (15:03)
--- NOTE | 2017-12-27 15:05 | OR ---
Operative Report - Dictated Report Narrative: Spontaneous vaginal delivery of viable male at 1423 on 12/27/2017 with Apgars 9 and 9, weighing 4093 g in [place] position. [Cord clamping delayed approximately 1 minute] Placenta delivered [complete, intact, with three vessel cord] Estimated blood loss: [less than 50 ml] Anesthesia: [epidural] Lacerations: Second degree vaginal laceration (3 cm) repaired with 3-0 Vicryl Rapide History for MU Definition: * The number of deliveries resulting in a live the patient experienced prior to current hospitalization * The previous delivery of live twins or any live multiple gestation is considered one live event. *If primagravida or nulliparous is documented select zero for the number of previous live births. Live Events: 1
[2017-12-27] MEDS: IBUPROFEN 800 MG TABLET PO PRN (17:40)
[2017-12-27] MEDS: DOCUSATE SODIUM 100 MG CAPSULE PO SCH (20:47)
[2017-12-27] MEDS: oxyCODONE HCL/ACETAMINOPHEN 1 TAB TABLET PO PRN (20:48)
[2017-12-27] MEDS ORDERED: CALCIUM CARBONATE 500 MG TAB.CHEW PO PRN (22:32)
[2017-12-28] MEDS: IBUPROFEN 800 MG TABLET PO PRN ×4 (00:21→20:58)
[2017-12-28] MEDS: oxyCODONE HCL/ACETAMINOPHEN 1 TAB TABLET PO PRN ×4 (00:21→19:03)
[2017-12-28] MEDS: DOCUSATE SODIUM 100 MG CAPSULE PO SCH ×2 (08:57→20:10)
--- NOTE | 2017-12-28 13:15 | PN ---
Subjective - Date and Time Seen Date: 12/28/17 Time: 13:15 Objective - Vitals Vitals: Last Vital Signs Temp 36.3 C 12/28/17 07:30 Pulse 82 12/28/17 07:30 Resp 18 12/28/17 07:30 BP 119/62 12/28/17 07:30 Pulse Ox 99 12/28/17 07:30 Patient denies complaints. Lochia wnl Abdomen - soft, nontender Uterus - firm, at umbilicus - 1 No calf tenderness Impression: day #1 - s/p spontaneous vaginal delivery. Plan: Continue routine care Cauti Physician Documentation - Urinary Catheter Management Urethral ([place]) Date of Insertion: 12/27/17 Time of Insertion: 11:30 Assessment/Plan - Problems/Diagnosis (1) Elective induction of labor planned Problem: Acute
[2017-12-29] MEDS: IBUPROFEN 800 MG TABLET PO PRN ×2 (03:28→09:47)
[2017-12-29] MEDS ORDERED: PRENATAL VITS96/IRON FUM/FOLIC 1 TAB TABLET PO SCH (09:00)
[2017-12-29 09:30] VITALS: BP 128/72
[2017-12-29] MEDS: DOCUSATE SODIUM 100 MG CAPSULE PO SCH (09:48)
--- NOTE | 2017-12-29 13:09 | PN ---
Subjective - Date and Time Seen Date: 12/29/17 Time: 13:08 Objective - Vitals Vitals: Last Vital Signs Temp 37.1 C 12/29/17 09:25 Pulse 88 12/29/17 09:25 Resp 14 12/29/17 09:25 BP 128/72 12/29/17 09:00 Pulse Ox 98 12/29/17 09:25 Patient denies complaints. Breast-feeding Lochia wnl Abdomen - soft, nontender Uterus - firm, at umbilicus - 2 No calf tenderness Impression: day #2 - s/p spontaneous vaginal delivery. Plan: Routine discharge instructions Cauti Physician Documentation - Urinary Catheter Management Urethral ([place]arsh) Date of Insertion: 12/27/17 Time of Insertion: 11:30 Assessment/Plan - Problems/Diagnosis (1) Elective induction of labor planned Problem: Acute
== END 2017-12-29 14:30 | disposition home or self-care (01) | DRG 807 ==
LOC: OB 00:06
PROVIDERS: ADMIT Obstetrics & Gynecology; ATTEND Obstetrics & Gynecology
CPT/HCPCS: 59025